=== PATIENT | female | born 1975 | race Caucasian/White ===

== ENCOUNTER 2017-07-06 11:01 | Emergency (ER) | payer MEDICAID ==
[~2017-07-06] VITALS: Ht 167.6 cm; Wt 90.3 kg
[~2017-07-06 11:01] MED LIST: CIPR500T4 PO
[2017-07-06 11:18] VITALS: BP 120/87
--- NOTE | 2017-07-06 12:10 | NUR ---
Patient ambulated to bed 08.
--- NOTE | 2017-07-06 12:12 | NUR ---
41/F BIBA C/O BILATERAL FLANK PAIN X 4 DAYS WITH TENDERNESS; DYSURIA, BURNING, URGENCY BODYACHES. HX OF FIBROMYALGIA, DEPRESSION. DENIES N/V/D; SKIN IS PINK/WARM/DRY; AAOX4 WITH EVEN AND STEADY GAIT; LUNGS CLEAR BL; HR EVEN AND REGULAR; PT DENIES ANY FEVER, CP, SOB, OR COUGH AT THIS TIME; PATIENT STATES PAIN OF1 0/10 AT THIS TIME; VSS; PATIENT POSITIONED FOR COMFORT; HOB ELEVATED; BEDRAILS UP X2; BED DOWN. ER MD MADE AWARE OF PT STATUS.
--- NOTE | 2017-07-06 12:37 | NUR ---
Dr. Gutierrez evaluating patient at bedside.
[2017-07-06] MEDS ORDERED: HYDROmorphone 1 MG/ML AMP IVP ONE ×2 (12:45→13:45)
[2017-07-06] MEDS ORDERED: NACL 0.9% 1,000 ML IV ONE (12:45)
--- NOTE | 2017-07-06 13:11 | NUR ---
PT TAKEN TOX RAY VIA [facility], ACCOMPANIED BY [facility].
[2017-07-06 13:15] LABS: APPEARANCE,URINE CLEAR (CLEAR); BILIRUBIN,URINE 1+ (NEGATIVE); BLOOD, URINE 1+ (NEGATIVE); COLOR,URINE YELLOW (YELLOW); LEUKOCYTE ESTERASE ,URINE NEGATIVE (NEGATIVE); NITRITE, URINE NEGATIVE (NEGATIVE); PH,URINE 7.5 (5.0-9.0); UGLUCOSE NEGATIVE (NEGATIVE)
[2017-07-06 13:15] LABS: BASOPHILS # (AUTO) 0.1 K/uL (0.00-0.22); BASOPHILS % (AUTO) 1.5 % (0.0-2.0); EOSINOPHILS # (AUTO) 0.5 K/uL (0-0.4); EOSINOPHILS % (AUTO) 6.2 % (0.0-4.0); HEMOGLOBIN 12.5 g/dL (12.0-16.0); LYMPHOCYTES # (AUTO) 2.2 K/uL (2.5-16.5); LYMPHOCYTES % (AUTO) 25.2 % (20.5-51.1); MEAN CORPUSCULAR HEMOGLOBIN 25 pg (27-31); MEAN CORPUSCULAR HGB CONC 33 g/dL (33-37); MEAN CORPUSCULAR VOLUME 76 fL (80-94); MONOCYTES # (AUTO) 0.7 K/uL (0.8-1.0); MONOCYTES % (AUTO) 7.5 % (1.7-9.3); NEUTROPHILS # (AUTO) 5.3 K/uL (1.8-7.7); NEUTROPHILS % (AUTO) 59.6 % (42.2-75.2); PLATELET COUNT (AUTO) 306 K/uL (140-450); RED BLOOD CELL COUNT(AUTO) 4.98 MIL/uL (4.20-5.40); RED CELL DISTRIBUTION WIDTH 18.5 % (11.6-13.7); WHITE BLOOD COUNT (AUTO) 8.8 K/uL (4.8-10.8)
--- NOTE | 2017-07-06 13:22 | NUR ---
PT BACK FROM X RAY
[2017-07-06 13:30] LABS: ANION GAP 13.2 (8-16); CARBON DIOXIDE 26.8 mmol/L (21-32); CREATININE 0.7 mg/dL (0.6-1.3)
[2017-07-06 13:35] LABS: ALBUMIN 3.8 g/dL (3.4-5.0); TOTAL BILIRUBIN 0.3 mg/dL (0.0-1.0)
[2017-07-06 13:41] LABS: RBC,URINE 0-5 (RARE) /HPF (0-5)
[2017-07-06 13:42] LABS: WBC,URINE NONE SEEN /HPF (0-5)
[2017-07-06] MEDS ORDERED: KETOROLAC 30 MG/ML VIAL IVP ONE (14:35)
[2017-07-06 14:43] VITALS: BP 131/73
--- NOTE | 2017-07-06 14:44 | NUR ---
MEDICATED FOR LOWER BACK PAIN---MD SPOKE WITH PT, PT OKAY TO GO HOME WITH RX PAIN MEDS----SHE WILL F/U WITH PMD
== END 2017-07-06 14:44 | disposition home or self-care (01) ==
LOC: MED 11:01
DX: M54.6 Pain in thoracic spine (principal); R10.9 Unspecified abdominal pain; F32.9 Major depressive disorder, single episode, unspecified; M79.7 Fibromyalgia; Z79.2 Long term (current) use of antibiotics
CPT/HCPCS: 36415; 74176; 80053; 81001; 81025; 83605; 85025; 96361; 96374; 96375; 96376; 99285; J1170; J1885; J7030

== ENCOUNTER 2019-08-21 13:24 | Emergency (ER) | payer MEDICAID ==
[~2019-08-21] VITALS: Ht 167.6 cm; Wt 96.6 kg
[2019-08-21 13:30] VITALS: BP 128/99
--- NOTE | 2019-08-21 13:36 | NUR ---
Patient ambulated to bed 12. RN evaluating patient at bedside.
--- NOTE | 2019-08-21 14:06 | NUR ---
PATIENT PRESENTS TO ED WITH C/O RIGHT LOWER BACK/ FLANK PAIN THAT RADIATES TO THE RLQ X 3 DAYS. PT REPORTS PAIN SQUEEZING AND SCORES IT 9/10. PT REPORTS NO KNOWN INJURY. PT TOOK TYLENOL AT HOME BUT HAD NO RELIEF. PT REPORTS VOMITTING X 1 DAY. PT REPORTS HEMATURIA X 3 DAYS AGO.DENIES N/D; SKIN IS PINK/WARM/DRY; AAOX4 WITH EVEN AND STEADY GAIT; HR EVEN AND REGULAR; PT DENIES ANY FEVER, CP, SOB, OR COUGH AT THIS TIME; VSS; PATIENT POSITIONED FOR COMFORT; HOB ELEVATED; BEDRAILS UP X2; BED DOWN. NKA
[2019-08-21] MEDS ORDERED: KETOROLAC 30 MG/ML VIAL IM ONE (14:10)
[2019-08-21] MEDS ORDERED: ONDANSETRON 4 MG ODT PO ONE (14:10)
[2019-08-21] MEDS ORDERED: NACL 0.9% 1,000 ML IV ONE (14:20)
[2019-08-21] MEDS ORDERED: KETOROLAC 30 MG/ML VIAL IVP ONE (14:30)
--- NOTE | 2019-08-21 14:52 | NUR ---
PT RESTING IN BED.
[2019-08-21] MEDS ORDERED: MORPHINE SULFATE 4 MG/ML SYR IVP ONE (15:05)
--- NOTE | 2019-08-21 15:24 | NUR ---
VSS AT THIS TIME, PT [id number], RESTING IN BED
[2019-08-21 16:26] VITALS: BP 133/88
--- NOTE | 2019-08-21 16:26 | NUR ---
Patient discharged with v/s stable. Written and verbal after care instructions given and explained. Patient alert, oriented and verbalized understanding of instructions. Ambulatory with steady gait. All questions addressed prior to discharge. ID band removed. Patient advised to follow up with PMD. Rx of ZOFRAN AND NAPROXEN given. Patient educated on indication of medication including possible reaction and side effects. Opportunity to ask questions provided and answered.
== END 2019-08-21 16:26 | disposition home or self-care (01) ==
LOC: MED 13:24
DX: R10.9 Unspecified abdominal pain (principal); R31.9 Hematuria, unspecified; R11.0 Nausea; Z79.2 Long term (current) use of antibiotics
CPT/HCPCS: 81002; 81025; 96374; 96375; 99283; J1885; J2270; J7030; Q0162